=== PATIENT | female | born 1980 | race Caucasian/White ===

== ENCOUNTER 2018-12-14 03:34 | Emergency (ER) | payer OTHER ==
[~2018-12-14] VITALS: Ht 172.7 cm; Wt 67.1 kg
[2018-12-14] MEDS ORDERED: BUTA1TAB23 PO (04:32)
--- NOTE | 2018-12-14 04:32 | PHYS DOC ---
Past History Past Medical History: Other Additional Past Medical Histor: SVT Past Surgical History: Tonsillectomy, Other Additional Past Surgical Histo: Ablation for SVT Smoking: Non-smoker Alcohol Use: None Drug Use: None Adult General Chief Complaint Chief Complaint: HEADACHE HPI HPI 38-year-old female presents with report of headache primarily to her right side posteriorly which started about 5 hours ago. Patient reports taking a six-hour milligram ibuprofen at 0200 without significant improvement. Denies any fever or chills. Denies neck pain. Denies photophobia. Patient does report some slight associated nausea. Denies known trauma. Patient reports concern as family has a history of strokes and aneurysms. Denies any focal weakness or numbness. Review of Systems Review of Systems Constitutional: Denies fever or chills Eyes: Denies redness or eye pain or photophobia HENT: Denies nasal congestion or sore throat Respiratory: Denies cough or shortness of breath Cardiovascular: Denies chest pain or palpitations GI: Denies abdominal pain or vomiting; reports nausea : Denies dysuria or hematuria Musculoskeletal: Denies back pain or joint pain Integument: Denies rash or skin lesions Neurologic: Reports headache; denies focal weakness or sensory changes Complete systems were reviewed and found to be within normal limits, except as documented in this note. Current Medications Current Medications Current Medications Medications (Trade) Dose Ordered Sig/Mark Start Time Stop Time Status Last Admin Dose Admin Acetaminophen/ Butalbital/ Caffeine (Fioricet) 2 tab 1X ONCE 12/14/18 04:30 12/14/18 04:31 UNV Dexamethasone Sodium Phosphate (Decadron) 10 mg 1X ONCE 12/14/18 04:30 12/14/18 04:31 UNV Diphenhydramine HCl (Benadryl) 25 mg 1X ONCE 12/14/18 04:30 12/14/18 04:31 UNV Sodium Chloride 1,000 ml @ 1,000 mls/hr 1X ONCE 12/14/18 04:30 12/14/18 05:29 UNV Allergies Allergies Allergies Coded Allergies Type Severity Reaction Last Updated Verified cephalexin Allergy Unknown 12/14/18 Yes morphine Allergy Unknown 12/14/18 Yes ondansetron Allergy Unknown 12/14/18 Yes promethazine Allergy Unknown 12/14/18 Yes Physical Exam Physical Exam Constitutional: Well developed, well nourished, no acute distress, non-toxic appearance HENT: Normocephalic, atraumatic, oropharynx moist Eyes: PERRL, EOMI, conjunctiva normal, no discharge Neck: Normal range of motion, no tenderness, supple, no meningeal signs Cardiovascular: Heart rate normal, regular rhythm Lungs & Thorax: Bilateral breath sounds clear to auscultation, no wheezing Abdomen: Soft, no tenderness Skin: Warm, dry, no erythema, no rash Extremities: No tenderness, ROM intact, no edema Neurologic: Alert and oriented X 3, normal motor function, normal sensory function, no focal deficits noted, cerebellar function intact Psychologic: Affect normal, judgement normal Current Patient Data Vital Signs Vital Signs Date Time Temp Pulse Resp B/P (MAP) Pulse Ox O2 Delivery O2 Flow Rate FiO2 12/14/18 03:40 98.2 65 16 100 Room Air EKG EKG [] Radiology/Procedures Radiology/Procedures [] Course & Med Decision Making Course & Med Decision Making Patient presents with report of headache. Denies known trauma. Reports some associated nausea. Physical exam without significant finding. Patient without meningeal signs. Patient is neurologically intact. NIHSS 0. Given lack of neurological changes and no history of trauma elect to hold CT imaging at this time. Risk of radiation outweighs the benefit. Symptomatic treatment provided. 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 0530- Patient reports no improvement of symptoms. Elect to obtain CT at this time. 0600- Sign out given to Dr. Christianson for follow up regarding CT results. Further pain addressed with Fentanyl. Patient will call for a ride upon d ischarge. IF CT negative and pain improved, patient will be stable for discharge with outpatient follow-up with PCP/neurologist. Neurology referral provided. Discussed current findings and plan with patient, who acknowledges understanding and agreement. Dragon Disclaimer Dragon Disclaimer This electronic medical record was generated, in whole or in part, using a voice recognition dictation system. Departure Departure: Impression: Primary Impression: Headache Disposition: HOME, SELF-CARE Condition: STABLE Referrals: [place] MCNEIL DO (PCP) KEATON BOONE MD Patient Instructions: Headache, FAQs Scripts Butalb/Acetaminophen/Caffeine ([id number] [id number]) 1 Each Tablet 1 EACH PO Q6HRS PRN for HEADACHE, #14 TAB Prov: LINDA VANCE DO 12/14/18 NIHSS - ED NIH Stroke Scale: NIH Stroke Scale Response (Comments) Value Level of Consciousness: 0 Alert/Responsive 0 LOC Questions: 0 Answers both correctly 0 LOC Commands: 0 Performs both tasks 0 Best Gaze: 0 Normal 0 Visual: 0 No visual loss 0 Facial Palsy: 0 Normal, symmetrical 0 Motor - Left Arm 0 No drift 0 Motor - Right Arm 0 No drift 0 Motor - Left Leg 0 No drift 0 Motor: Right Leg 0 No drift 0 Limb Ataxia: 0 Absent 0 Sensory: 0 No loss 0 Best Language: 0 Normal 0 Dysathria: 0 Normal 0 Extinction and Inattention: 0 Normal 0 Total 0 Problem Qualifiers Primary Impression: Headache Headache type: unspecified Headache chronicity pattern: acute headache Intractability: not intractable Qualified Codes: R51 - Headache LINDA VANCE DO Dec 14, 2018 04:32
[2018-12-14] MEDS: diphenhydrAMINE 50 MG/ML VIAL IVP ONE (04:56)
[2018-12-14] MEDS: BUTALB/APAP/CAFEIN 50/325/40MG TABLET. PO ONE (04:56)
[2018-12-14] MEDS: IV NORMAL SALINE 1,000ML 1,000 ML IV ONE (04:56)
[2018-12-14] MEDS: DEXAMETHASONE SOD PHOS 10 MG/ML VIAL IV ONE (04:57)
--- NOTE | 2018-12-14 06:08 | RAD ---
RS Compliance Statement: One or more of the following individualized dose reduction techniques were utilized for this examination: 1. Automated exposure control 2. Adjustment of the mA and/or kV according to patient size 3. Use of iterative reconstruction technique CT HEAD WITHOUT CONTRAST History: Severe headache. Comparison: None. Procedure: Axial images are obtained of the head from the skull base through the vertex without IV contrast. Findings: The ventricles and sulci are normal for the patient's age. No mass-effect, midline shift, hemorrhage, extra-axial fluid collection, or obvious acute infarction is identified. Basilar cisterns are patent. Bone windows demonstrate no acute calvarial abnormality. The visualized paranasal sinuses are clear. Mastoid air cells are well aerated. IMPRESSION: No acute intracranial abnormality. Electronically signed by: Kye Bourgeois MD (12/14/2018 6:05 AM) [facility]
[2018-12-14 06:20] VITALS: BP 145/85
== END 2018-12-14 06:57 | disposition home or self-care (01) ==
LOC: ER 03:34
DX: R51 Headache (principal); R11.0 Nausea; Z88.1 Allergy status to other antibiotic agents; Z88.5 Allergy status to narcotic agent; Z88.8 Allergy status to other drugs, medicaments and biological substances
CPT/HCPCS: 70450; 81025; 96374; 96375; 99284; J1100; J1200; J3010; J7030

== ENCOUNTER 2020-03-17 13:51 | Emergency (ER) | payer OTHER ==
[~2020-03-17] VITALS: Ht 170.2 cm; Wt 97.0 kg
[~2020-03-17 13:51] MED LIST: BUTA1TAB23 PO
[2020-03-17 13:58] VITALS: BP 136/91
--- NOTE | 2020-03-17 14:09 | PHYS DOC ---
Past History Past Medical History: Other Additional Past Medical Histor: SVT, HERNIA, Past Surgical History: Other Additional Past Surgical Histo: HERNIA Smoking: Non-smoker Alcohol Use: None Drug Use: None Adult General Chief Complaint Chief Complaint: LACERATION/AVULSION [facility] HPI Patient is a healthy 39-year-old female who presents for finger laceration. This occurred just prior to arrival while cleaning out her basement, states she cut finger on a sharp piece of glass. Unknown if any retained foreign bodies are present. Not on any blood thinners. Tetanus is up-to-date Review of Systems Review of Systems Fourteen body systems of review of systems have been reviewed. See HPI for pertinent positives and negative responses, other russo all other systems are negative, non-pertinent or non-contributory Allergies Allergies Allergies Coded Allergies Type Severity Reaction Last Updated Verified cephalexin Allergy Unknown 03/17/20 Yes morphine Allergy Unknown 03/17/20 Yes ondansetron Allergy Unknown 03/17/20 Yes promethazine Allergy Unknown 03/17/20 Yes Physical Exam Physical Exam Constitutional: Well developed, well nourished, no acute distress, non-toxic appearance. HENT: Normocephalic, atraumatic, bilateral external ears normal, oropharynx moist, no oral exudates, nose normal. Eyes: PERRLA, EOMI, conjunctiva normal, no discharge. Neck: Normal range of motion, no tenderness, supple, no stridor. Cardiovascular: Heart rate regular, sinus rhythm, no murmurs rubs or gallops Lungs & Thorax: Bilateral breath sounds clear to auscultation Abdomen: Bowel sounds normal, soft, no tenderness, no masses, no pulsatile masses. Nonsurgical abdomen, no peritoneal signs Skin: Warm, dry, no erythema, no rash. Back: No tenderness, no CVA tenderness. Extremities: No tenderness, no cyanosis, no clubbing, ROM intact, no edema. Concave 1.2 cm superficial laceration with closely approximated borders and hemostasis achieved prior to arrival present on distal pad of second index digit on left hand without any other observed and/or palpable abnormalities Neurologic: Alert and oriented X 3, normal motor & sensory function, no focal deficits noted. Psychologic: Affect normal, judgement normal, mood normal. Current Patient Data Vital Signs Vital Signs Date Time Temp Pulse Resp B/P (MAP) Pulse Ox O2 Delivery O2 Flow Rate FiO2 10/26/20 13:58 97.0 72 18 136/91 (106) 99 Room Air EKG EKG [] Radiology/Procedures Radiology/Procedures PROCEDURE: HAND RIGHT 3V Three-view right hand HISTORY: Potential foreign body after laceration right index finger the AP lateral oblique views The visualized osseous structures appear normal. There is no radiopaque foreign body. IMPRESSION: Negative examination. Electronically signed by: Mekhi Fernandez III, MD (03/17/2020 2:19 PM) [facility] Heart Score Risk Factors: Risk Factors: DM, Current or recent (<one month) smoker, HTN, HLP, family history of CAD, obesity. Risk Scores: Risk Factors: DM, Current or recent (<one month) smoker, HTN, HLP, family history of CAD, obesity. Course & Med Decision Making Course & Med Decision Making Pertinent Labs and Imaging studies reviewed. (See chart for details) [] Dragon Disclaimer Dragon Disclaimer This electronic medical record was generated, in whole or in part, using a voice recognition dictation system. Laceration Repair Lac Repair Indication: Left index finger laceration Procedure: The patient was placed in the appropriate position and site was cleansed with copious amounts of tap water. X-ray confirmed no retained foreign body. Given well demarcated borders that were closely approximated prior to any intervention, joint decision to pursue Dermabond for closure. Dressing applied after closure Total repaired wound length: 1.2 cm Other Items: Dermabond The patient tolerated the procedure without any observed and/or reported complications Departure Departure: Impression: Primary Impression: Laceration of finger of right hand without foreign body Disposition: 01 DC HOME SELF CARE/HOMELESS Condition: STABLE Referrals: [place] MCNEIL DO (PCP) Patient Instructions: Fingertip Laceration, Laceration Care, Adult KAUSHAL HARLEY DO Mar 17, 2020 14:09
--- NOTE | 2020-03-17 14:22 | RAD ---
Three-view right hand HISTORY: Potential foreign body after laceration right index finger the AP lateral oblique views The visualized osseous structures appear normal. There is no radiopaque foreign body. IMPRESSION: Negative examination. Electronically signed by: Mekhi Fernandez III, MD (03/17/2020 2:19 PM) [facility]
== END 2020-03-17 14:33 | disposition home or self-care (01) ==
LOC: ER 13:51
DX: S61.211A Laceration without foreign body of left index finger without damage to nail, initial encounter (principal); Z88.1 Allergy status to other antibiotic agents; Z88.5 Allergy status to narcotic agent; Z88.8 Allergy status to other drugs, medicaments and biological substances; W25.XXXA Contact with sharp glass, initial encounter; Y93.89 Activity, other specified; Y92.89 Other specified places as the place of occurrence of the external cause; Y99.8 Other external cause status
CPT/HCPCS: 12001; 12002; 73130; 99283